=== PATIENT | female | born 1950 | race Caucasian/White ===

== ENCOUNTER 2016-05-20 13:38 | Emergency (ER) | payer BC ==
[~2016-05-20] VITALS: Ht 170.2 cm; Wt 70.0 kg
[~2016-05-20 13:38] MED LIST: ALBU1AER INH; CALCTAB70 PO; COUM1TAB PO; DILT90TA PO; IRON27TA PO; LISI40TA PO; LORTA5 PO; METH250T PO; PROBCAP4 PO; TERA5CAP34 PO; Z.0.COMMODE-3:1; Z.0.WALKERFRONT
[2016-05-20 13:41] VITALS: BP 150/70; PULSE 95; RESP 15; TEMP 98; O2SAT 99
[2016-05-20] MEDS ORDERED: DILT60TA33 PO (14:30)
[2016-05-20] MEDS ORDERED: HYTRIN PO (14:30)
[2016-05-20] MEDS ORDERED: LISI40TA PO (14:30)
[2016-05-20] MEDS ORDERED: METH250T PO (14:30)
--- NOTE | 2016-05-20 15:07 | PD ---
HPI . left ankle edema/leg edema x 3 weeks Chief Complaint: Edema Time Seen by Provider: 14:20 Travel History International Travel<30 days: No Contact w/Intl Traveler<30days: No Traveled to known affect area: No History of Present Illness HPI 65-year-old female with no past medical history other than hypertension here with complaints of left ankle and lower extremity edema for 3 weeks. Patient was previously seen by her primary care provider and received an x-ray of the left ankle, without any acute abnormality. She is here for further evaluation if she does not have an appointment with orthopedics until June 11. She is concerned about a DVT and decided to come in for further evaluation. She denies any recent travel or shortness of breath. She has no other complaints. She denies any new medications. PFSH Past Medical History Cancer: No Cardiovascular Problems: Yes (htn) Endocrine: No Genitourinary: No Hepatitis: No Hiatal Hernia: No Hypertension: Yes Immune Disorder: No Musculoskeletal: No (LEFTHIP, RIGHT HIP, KNESS AND BACK, RIGHT WRIST) Neurologic: No Psychiatric: No Reproductive: No Tetanus Vaccination: < 5 Years Influenza Vaccination: Yes ?: Not Menopausal: Yes Past Surgical History Abdominal Surgery: Yes (UMBILICAL) AICD: No Body Medical Devices: NONE Cardiac Surgery: No Ear Surgery: No Endocrine Surgery: No Eye Surgery: No Genitourinary Surgery: No Gynecologic Surgery: No Joint Replacement: Yes (LEFT HIP) Oral Surgery: Yes (REMOVAL WISDOM TEETH) Pacemaker: No Thoracic Surgery: No Social History Alcohol Use: No Tobacco Use: No Substance Use: No Allergies-Medications (Allergen,Severity, Reaction): Coded Allergies: No Known Allergies (Verified , 05/20/16) Reported Meds & Prescriptions Reported Meds & Active Scripts Active Aspirin 325 Mg Tab 325 Mg PO DAILY Reported Methyldopa 250 Mg Tab 250 Mg PO BID Lisinopril 40 Mg Tab 40 Mg PO DAILY [Hytrin] 5 Mg PO Cardizem (Diltiazem HCl) 60 Mg Tab 90 Mg PO TID Review of Systems General / Constitutional: No: Fever Eyes: No: Visual changes HENT: No: Headaches Cardiovascular: No: Chest Pain or Discomfort Respiratory: No: Shortness of Breath Gastrointestinal: No: Abdominal Pain Genitourinary: No: Dysuria Musculoskeletal: Positive: Pain (left leg) Skin: No Rash Neurologic: No: Weakness Psychiatric: No: Depression Endocrine: No: Polydipsia Hematologic/Lymphatic: No: Easy Bruising Physical Exam Narrative GENERAL: AAO x 3, no acute distress, Well-nourished, well-developed patient. SKIN: Warm and dry. No visible rashes or bruising. HEAD: Normocephalic and atraumatic. EYES: No scleral icterus. No injection or drainage. ENT: No nasal drainage noted. Mucous membranes pink. Airway patent. NECK: Supple, trachea midline. No JVD. CARDIOVASCULAR: Regular rate and rhythm without murmurs, gallops, or rubs. RESPIRATORY: Breath sounds equal bilaterally. No accessory muscle use. No rhonchi or rales. GASTROINTESTINAL: Abdomen soft, non-tender, nondistended. EXTREMITIES: No cyanosis. left leg with edema mainly over the lateral malleolus. There is also edema in the distal tib-fib/anterior wisdom. Leg is somewhat warm to touch in comparison to the right leg. Possible DVT versus thrombophlebitis. ROM is normal BACK: Nontender without obvious deformity. No CVA tenderness. PSYCH: AAO x 3, normal affect. Data Data Last Documented VS Vital Signs Date Time Temp Pulse Resp B/P Pulse Ox O2 Delivery O2 Flow Rate FiO2 05/20/16 14:31 Room Air 05/20/16 13:41 98.0 95 15 150/70 99 Orders Us Leg Venous Doppler (05/20/16 14:25) MDM Medical Decision Making Medical Screen Exam Complete: Yes Emergency Medical Condition: Yes Medical Record Reviewed: Yes Differential Diagnosis left ankle edema, leg edema, less likely acute fracture Narrative Course 65-year-old female with no past medical history other than hypertension here with complaints of left ankle and lower extremity edema for 3 weeks. Patient was previously seen by her primary care provider and received an x-ray of the left ankle, without any acute abnormality. She is here for further evaluation if she does not have an appointment with orthopedics until June 11. She is concerned about a DVT and decided to come in for further evaluation. She denies any recent travel or shortness of breath. She has no other complaints. She denies any new medications. Patient seen and examined. She does have some mild lower extremities edema. Venous Dopplers the left lower extremity ordered to rule out DVT. Last Impressions Lower Extremity Ultrasound 05/20/16 5039 Signed Impressions: Service Date/Time: May 15:07 - CONCLUSION: 1. Thrombosis of a large, superficial varicosity along the inner aspect of the left lower leg. 2. The deep venous system is widely patent. Jean Massey MD I discussed with Dr. Hernandez. He reached out to Dr. Becker. Recommendations were to use full dose aspirin, ERIKA hose and repeat ultrasound in one week with primary care provider. Patient verbalized understanding of instructions, questions were answered, and thanked me for their care. I advised them if their condition worsens, please return to the nearest emergency room for further care. Diagnosis Primary Impression: Superficial thrombosis of left lower extremity Additional Impression: Edema, leg Qualified Code: R60.0 - Edema of left lower extremity Patient Instructions: General Instructions, Superficial Thrombophlebitis (ED) Additional Instructions: Please return to emergency department if your symptoms return or worsen. Follow up with your primary care provider. Take medications as prescribed. Please follow-up with her primary care provider in one week for repeat ultrasound to make sure you do not develop any DVT. Med/Other Pt SpecificInfo: Prescription(s) given Scripts Aspirin 325 Mg [id number] Mg PO DAILY #30 TAB Ref 0 Prov:Adarhs Hernandez MD 05/20/16 Disposition: 01 DISCHARGE HOME Condition: Stable Heather Meyer May 20, 2016 15:07
--- NOTE | 2016-05-20 16:00 | RADRPT ---
EXAM DATE/TIME: 05/20/2016 15:07 [facility] COMPARISON: No previous studies available for comparison. INDICATIONS : Left leg pain. MEDICAL HISTORY : Hypertension. Umbilical hernia. Asthma. SURGICAL HISTORY : Left hip surgery. Right hip surgery. Right wrist surgery. ENCOUNTER: Initial ACUITY: 3 weeks PAIN SCORE: 7/10 LOCATION: Left leg. TECHNIQUE: Venous ultrasound of the leg was performed from the inguinal ligament to the proximal calf. Real-nazanin e, color Doppler and spectral tracing, compression and augmentation techniques were used. FINDINGS: The deep venous system is widely patent throughout the left lower extremity. The exam demonstrates a large thoracostomy on the inner aspect of the left lower leg. There is thromb us within this. CONCLUSION: 1. Thrombosis of a large, superficial varicosity along the inner aspect of the left lower leg. 2. The deep venous system is widely patent. Jean Massey MD on May 20, 2016 at 15:57 Board Certified Radiologist. This report was verified electronically.
[2016-05-20] MEDS ORDERED: ASPI325T PO (16:23)
[2016-05-26] MEDS ORDERED: TERA5CAP3 PO (20:59)
== END 2016-05-20 16:38 | disposition home or self-care (01) ==
LOC: NEPK 13:38
DX: I82.812 Embolism and thrombosis of superficial veins of left lower extremity (principal)
CPT/HCPCS: 93971